=== PATIENT | male | born 1980 ===

== ENCOUNTER 2018-11-21 14:53 | Emergency (ER) | payer MEDICAID, OTHER ==
[2018-11-21 15:09] VITALS: BMI 25.8
[2018-11-21] MEDS ORDERED: Sodium Chloride 0.9% 1,000 ML IV STA (15:32)
--- NOTE | 2018-11-21 15:33 | ED PDOC ---
Arrival/HPI - History of Present Illness Narrative History of Present Illness (Text): 11/21/18 18:20 Patient is a 38 year old male with no significant past medical history presenting with chief complaint of abdominal pain which began three days ago. Pain is left sided and characterized as a sharp stabbing sensation that has now progressed to the right lower quadrant as well. Patient denies trying any new foods recently. Admits to two to three episodes of diarrhea per day. Denies headache, dizziness, nausea, vomiting, chest pain, shortness of breath, hematochezia, dysuria. Time/Duration: < week Symptom Onset: Sudden Symptom Course: Unchanged Quality: Stabbing <Yogi Spencer - Last Filed: 11/21/18 20:31> <Sean Ortega - Last Filed: 11/21/18 20:55> - General Chief Complaint: GI Problem Time Seen by Provider: 11/21/18 14:54 Past Medical History - Provider Review Nursing Documentation Reviewed: Yes - Infectious Disease Hx of Infectious Diseases: None - Cardiac Hx Cardiac Disorders: No - Pulmonary Hx Respiratory Tract Infection: Yes - Neurological Hx Neurological Disorder: No - HEENT Hx HEENT Disorder: No - Renal Hx Renal Disorder: No - Endocrine/Metabolic Hx Endocrine Disorders: No - Hematological/Oncological Hx Blood Transfusions: Yes Hx Blood Transfusion Reaction: No - Integumentary Hx Dermatological Disorder: No - Musculoskeletal/Rheumatological Hx Falls: No Hx Fractures: Yes (L ankle 09/16/13) - Gastrointestinal Hx Gastrointestinal Disorders: No - Genitourinary/Gynecological Hx Genitourinary Disorders: No - Psychiatric Hx Emotional Abuse: No Hx Physical Abuse: No Hx Substance Use: No - Surgical History Hx Splenectomy: Yes (2000) - Anesthesia Hx Anesthesia Reactions: No Hx Malignant Hyperthermia: No - Suicidal Assessment Feels Threatened In Home Enviroment: No <Yogi Spencer - Last Filed: 11/21/18 20:31> Family/Social History - Physician Review Nursing Documentation Reviewed: Yes Family/Social History: No Known Family HX Smoking Status: Current Some Days Smoker Hx Alcohol Use: Yes (social) Hx Substance Use: No <Yogi Spencer - Last Filed: 11/21/18 20:31> Allergies/Home Meds <Yogi Spencer - Last Filed: 11/21/18 20:31> <Sean Ortega - Last Filed: 11/21/18 20:55> Allergies/Adverse Reactions: Allergies No Known Allergies Allergy (Unverified 11/21/18 15:08) Review of Systems - Physician Review All systems were reviewed & negative as marked: Yes - Review of Systems Respiratory: Normal Cardiovascular: Normal Gastrointestinal: Abdominal Pain, Diarrhea Genitourinary Male: Normal <Yogi Spencer Raj - Last Filed: 11/21/18 20:31> Physical Exam Vital Signs Reviewed: Yes Vital Signs Temp Pulse Resp BP Pulse Ox 11/21/18 15:12 97.9 F 106 H 18 141/96 H 97 Temperature: Afebrile Blood Pressure: Hypertensive Pulse: Tachycardic Respiratory Rate: Normal Appearance: Positive for: Well-Appearing, Non-Toxic Pain Distress: None Mental Status: Positive for: Alert and Oriented X 3 - Systems Exam Head: Present: Atraumatic, Normocephalic Pupils: Present: PERRL Extroacular Muscles: Present: EOMI Conjunctiva: Present: Normal Mouth: Present: Moist Mucous Membranes Respiratory/Chest: Present: Clear to Auscultation, Good Air Exchange. No: Respiratory Distress, Accessory Muscle Use Cardiovascular: Present: Regular Rate and Rhythm, Normal S1, S2. No: Murmurs Abdomen: Present: Normal Bowel Sounds. No: Tenderness, Distention, Peritoneal Signs, Rebound, Guarding Lower Extremity: Present: Normal Inspection. No: Edema Neurological: Present: GCS=15, CN II-XII Intact, Speech Normal Skin: Present: Warm, Dry, Normal Color Psychiatric: Present: Alert, Oriented x 3 <Emerald Spencerkarlo L - Last Filed: 11/21/18 20:31> Vital Signs Temp Pulse Resp BP Pulse Ox 11/21/18 20:22 98.5 F 89 18 121/69 98 11/21/18 20:02 97.5 F L 89 18 121/69 98 11/21/18 18:23 97.2 F L 93 H 16 119/78 98 11/21/18 15:12 97.9 F 106 H 18 141/96 H 97 <Sean Ortega - Last Filed: 11/21/18 20:55> Medical Decision Making ED Course and Treatment: 11/21/18 18:27 Impression: 38 year old male with abdominal pain and diarrhea Plan: - CBC, CMP, lipase - CT abd/pelvis - Urinalysis - IVF - Reassess and disposition Prior Visits: Notes and results from previous visits were reviewed. Progress Notes: 11/21/18 18:28 LOWER THORAX: No visible consolidation, pleural effusion, or pneumothorax. LIVER: Heterogeneous indeterminate partially peripherally calcified hyperdense mass is noted in the left upper quadrant measuring approximately 2.5 x 3.0 cm either arising from or adjacent to the left hepatic lobe. Mild hepatomegaly. GALLBLADDER AND BILE DUCTS: Unremarkable. PANCREAS: Unremarkable. SPLEEN: 2.2 x 1.9 cm splenule. ADRENALS: Unremarkable. KIDNEYS AND URETERS: The kidneys enhance symmetrically. No hydronephrosis or obstructing calculus identified. Too small to characterize right renal hypodensity; statistically likely cyst. VASCULATURE: No aortic aneurysm. No atherosclerotic calcification or mural plaque present. BOWEL: Stomach is nondistended. Lack of oral contrast limits evaluation for bowel pathology. Bowel loops appear within normal limits of caliber without evidence of obstruction. Diverticulosis with mild wall thickening and associated inflammatory changes at the left colon/sigmoid colon consistent with acute diverticulitis. APPENDIX: The appendix appears within normal limits of caliber. No secondary signs of acute appendicitis. PERITONEUM: No significant free fluid. No definite free air. LYMPH NODES: Subtle hazy mesentery. Sub cm mesenteric lymph nodes, nonspecific. BLADDER: Urinary bladder appears thick walled, likely exaggerated by under distension. REPRODUCTIVE: Prostate gland measures approximately 3.1 x 4.1 cm. BONES: Left L5 spondylolysis. OTHER FINDINGS: Small fat containing umbilical hernia. IMPRESSION: Appearance consistent with diverticulitis of the left colon/sigmoid colon as above. Indeterminate heterogeneous partially peripherally calcified hyperdense mass is noted in the left upper quadrant measuring approximately 2.5 x 3.0 cm either arising from or adjacent to the left hepatic lobe. Mild hepatomegaly. Subtle hazy mesentery. Sub cm mesenteric lymph nodes, nonspecific. Correlate clinically for possibility of mesenteric adenitis/panniculitis. Additional findings as above. Zosyn administered. Labs and imaging reviewed. Patient hemodynamically stable and optimized for discharge to follow up with primary medical doctor. Patient in agreement with plan of management. - Lab Interpretations I have reviewed the lab results: Yes - RAD Interpretation Radiology Orders: 11/21/18 15:32 ABD & PELVIS IV CONTRAST ONLY [CT] Stat - Medication Orders Current Medication Orders: Sodium Chloride (Sodium Chloride 0.9%) 1,000 mls @ 999 mls/hr IV .Q1H1M STA Stop: 11/21/18 16:32 <Yogi Spencer - Last Filed: 11/21/18 20:31> ED Course and Treatment: Patient Seen with Resident: In agreement with resident note which contains more details about the patient. P atient seen and evaluated with resident. Came up with plan and treatment together. Pt presented for abdominal pain and diarrhea. 11/21/18 20:53 pt seen with resident. diverciultis uncomplciated abd soft pain improved. declines obs. prefers outpt trial antibiotics strict return precautions advised. - Lab Interpretations Lab Results: PT 12.5 SECONDS (9.4-12.5) 11/21/18 15:54 INR 1.13 11/21/18 15:54 APTT 48.7 Seconds (26.9-38.3) H 11/21/18 15:54 Total Bilirubin 0.5 mg/dL (0.2-1.3) 11/21/18 15:54 AST 35 U/L (17-59) 11/21/18 15:54 ALT 43 U/L (7-56) 11/21/18 15:54 Alkaline Phosphatase 90 U/L (38-126) 11/21/18 15:54 Total Protein 9.1 g/dL (5.8-8.3) H 11/21/18 15:54 Albumin 4.8 g/dL (3.0-4.8) 11/21/18 15:54 Globulin 4.3 gm/dL 11/21/18 15:54 Albumin/Globulin Ratio 1.1 (1.1-1.8) 11/21/18 15:54 Lipase 70 U/L (23-300) 11/21/18 15:54 Urine Color Yellow (YELLOW) 11/21/18 18:11 Urine Appearance Clear (CLEAR) 11/21/18 18:11 Urine pH 6.0 (4.7-8.0) 11/21/18 18:11 Ur Specific Pledger 1.025 (1.005-1.035) 11/21/18 18:11 Urine Protein Negative mg/dL (<30 mg/dL) 11/21/18 18:11 Urine Glucose (UA) Negative mg/dL (NEGATIVE) 11/21/18 18:11 Urine Ketones Negative mg/dL (NEGATIVE) 11/21/18 18:11 Urine Blood Trace-lysed (NEGATIVE) H 11/21/18 18:11 Urine Nitrate Negative (NEGATIVE) 11/21/18 18:11 Urine Bilirubin Negative (NEGATIVE) 11/21/18 18:11 Urine Urobilinogen 0.2 E.U./dL (<1 E.U./dL) 11/21/18 18:11 Ur Leukocyte Esterase Negative Jerri/uL (NEGATIVE) 11/21/18 18:11 Urine RBC None /hpf (0-2) 11/21/18 18:11 Urine WBC None /hpf (0-6) 11/21/18 18:11 - RAD Interpretation Radiology Orders: 11/21/18 15:32 ABD & PELVIS IV CONTRAST ONLY [CT] Stat - Medication Orders Current Medication Orders: Discontinued Medications Sodium Chloride (Sodium Chloride 0.9%) 1,000 mls @ 999 mls/hr IV .Q1H1M STA Stop: 11/21/18 16:32 Last Admin: 11/21/18 15:55 Dose: 999 mls/hr eMAR Start Stop Document 11/21/18 15:55 AHUJP (Rec: 11/21/18 15:55 [id number] [id number]) Intravenous Solution Start Date 11/21/18 Start Time 15:55 End Date 11/21/18 End time 16:55 Total Infusion Time 60 Piperacillin Sod/Tazobactam Sod (Zosyn 3.375 In Ns 100ml) 100 mls @ 200 mls/hr IVPB STAT STA; Protocol Stop: 11/21/18 18:01 Last Admin: 11/21/18 17:53 Dose: 200 mls/hr eMAR Start Stop Document 11/21/18 17:53 AHUJP (Rec: 11/21/18 17:54 UJP [id number]) Intravenous Solution Start Date 11/21/18 Start Time 17:50 End Date 11/21/18 End time 18:20 Total Infusion Time 30 <Sean Ortega - Last Filed: 11/21/18 20:55> Disposition/Present on Arrival - Present on Arrival Any Indicators Present on Arrival: No History of DVT/PE: No History of Uncontrolled Diabetes: No Urinary Catheter: No History of Decub. Ulcer: No History Surgical Site Infection Following: None - Disposition Have Diagnosis and Disposition been Completed?: Yes Disposition Time: 18:40 <Yogi Spencer - Last Filed: 11/21/18 20:31> <Sean Ortega - Last Filed: 11/21/18 20:55> - Disposition Diagnosis: Abdominal pain, Diverticulitis Disposition: HOME/ ROUTINE Condition: STABLE Discharge Instructions (ExitCare): Diverticulitis (DC), Diverticulitis (DC) Additional Instructions: Follow up with your primary medical doctor within one week. Take your antibiotics as prescribed. Return to ED if symptoms return or worsen. Prescriptions: Ciprofloxacin [Cipro] 500 mg PO BID #20 tab metroNIDAZOLE [Flagyl] 500 mg PO TID #30 tab Referrals: [facility] [Outside] - Follow up with primary [facility] [place] - Follow up with primary Daniel Sibley MD [Staff Provider] - Follow up with primary PCP,NO [Primary Care Provider] - Follow up with primary Forms: [employer] (Nepali), WORK NOTE
[2018-11-21 16:02] LABS: BASO # 0.05 K/mm3 (0.0-2.0); BASO % 0.8 % (0.0-3.0); EOS # 0.2 (0.0-0.7); EOS % 2.5 % (1.5-5.0); HEMOGLOBIN 16.2 g/dL (14.0-18.0); LYMPH # 2.5 (1.2-3.4); MEAN CELL VOLUME 95.3 fl (80.0-105.0); MEAN CORPUSCULAR HGB CONC 33.5 g/dl (31.0-37.0); MONO # 0.6 (0.1-0.6); MONO % 9.9 % (1.0-6.0); RBC 5.07 10^6/uL (3.5-6.1); RED CELL DISTRIBUTION WIDTH 12.9 % (11.5-14.5); WHITE BLOOD COUNT 6.4 10^3/uL (4.5-11.0)
[2018-11-21 16:12] LABS: ALB/GLOB RATIO 1.1 (1.1-1.8); ALBUMIN 4.8 g/dL (3.0-4.8); ALT/SGPT 43 U/L (7-56); AST/SGOT 35 U/L (17-59); BLOOD UREA NITROGEN 10 mg/dL (7-21); CALCIUM 9.7 mg/dL (8.4-10.5); GFR NON-AFRICAN AMERICAN > 60; INR 1.13; LIPASE 70 U/L (23-300); PARTIAL THROMBOPLASTIN TIME 48.7 Seconds (26.9-38.3); PROTHROMBIN TIME 12.5 SECONDS (9.4-12.5)
[2018-11-21] MEDS ORDERED: Iohexol 350 MG/100 ML VIAL ONE (16:47)
[2018-11-21] MEDS ORDERED: Piperacillin/Tazobact 3.375 gm 100 ML IVPB STA (17:32)
--- NOTE | 2018-11-21 17:33 | CT ---
Date of service: 11/21/2018 PROCEDURE: CT Abdomen and Pelvis with contrast HISTORY: lower abd pain, left worse than right COMPARISON: None available. TECHNIQUE: Contrast dose: 100 mL Omnipaque 350 IV Radiation dose: Total exam DLP = 463.98 mGy-cm. This CT exam was performed using one or more of the following dose reduction techniques: Automated exposure control, adjustment of the mA and/or kV according to patient size, and/or use of iterative reconstruction technique. FINDINGS: LOWER THORAX: No visible consolidation, pleural effusion, or pneumothorax. LIVER: Heterogeneous indeterminate partially peripherally calcified hyperdense mass is noted in the left upper quadrant measuring approximately 2.5 x 3.0 cm either arising from or adjacent to the left hepatic lobe. Mild hepatomegaly. GALLBLADDER AND BILE DUCTS: Unremarkable. PANCREAS: Unremarkable. SPLEEN: 2.2 x 1.9 cm splenule. ADRENALS: Unremarkable. KIDNEYS AND URETERS: The kidneys enhance symmetrically. No hydronephrosis or obstructing calculus identified. Too small to characterize right renal hypodensity; statistically likely cyst. VASCULATURE: No aortic aneurysm. No atherosclerotic calcification or mural plaque present. BOWEL: Stomach is nondistended. Lack of oral contrast limits evaluation for bowel pathology. Bowel loops appear within normal limits of caliber without evidence of obstruction. Diverticulosis with mild wall thickening and associated inflammatory changes at the left colon/sigmoid colon consistent with acute diverticulitis. APPENDIX: The appendix appears within normal limits of caliber. No secondary signs of acute appendicitis. PERITONEUM: No significant free fluid. No definite free air. LYMPH NODES: Subtle hazy mesentery. Sub cm mesenteric lymph nodes, nonspecific. BLADDER: Urinary bladder appears thick walled, likely exaggerated by under distension. REPRODUCTIVE: Prostate gland measures approximately 3.1 x 4.1 cm. BONES: Left L5 spondylolysis. OTHER FINDINGS: Small fat containing umbilical hernia. IMPRESSION: Appearance consistent with diverticulitis of the left colon/sigmoid colon as above. Indeterminate heterogeneous partially peripherally calcified hyperdense mass is noted in the left upper quadrant measuring approximately 2.5 x 3.0 cm either arising from or adjacent to the left hepatic lobe. Mild hepatomegaly. Subtle hazy mesentery. Sub cm mesenteric lymph nodes, nonspecific. Correlate clinically for possibility of mesenteric adenitis/panniculitis. Additional findings as above.
[2018-11-21 18:24] LABS: URINE BILIRUBIN NEGATIVE (NEGATIVE); URINE BLOOD TRACE-LYSED (NEGATIVE); URINE COLOR YELLOW (YELLOW); URINE GLUCOSE (UA) NEGATIVE (NEGATIVE); URINE LEUKOCYTE ESTERASE NEGATIVE Leu/uL (NEGATIVE); URINE PROTEIN NEGATIVE mg/dL (<30 mg/dL); URINE UROBILINOGEN 0.2 E.U./dL (<1 E.U./dL)
[2018-11-21 18:25] LABS: URINE APPEARANCE CLEAR (CLEAR)
[2018-11-21 18:28] VITALS: O2SAT 98
[2018-11-21 20:03] VITALS: BP 121/69; PULSE 89; RESP 18
[2018-11-21 20:23] VITALS: TEMP 98.5
== END 2018-11-21 20:22 | disposition home or self-care (01) ==
LOC: ED 14:53
DX: R10.9 Unspecified abdominal pain (principal); K57.92 Diverticulitis of intestine, part unspecified, without perforation or abscess without bleeding
CPT/HCPCS: 74177; 80053; 81001; 83690; 85025; 85610; 85730; 96361; 96365; 99283; J2543; J7030; Q9967